=== PATIENT | male | born 2000 | race Two or more races ===

== ENCOUNTER 2018-09-17 09:03 | Emergency (ER) | payer OTHER ==
[2018-09-17 09:22] VITALS: BMI 28.2
[2018-09-17] MEDS ORDERED: ONDANSETRON 4 MG/2 ML VIAL IVPUSH ONE (09:23)
[2018-09-17] MEDS ORDERED: SODIUM CHLORIDE 1,000 ML IV STA (09:23)
[2018-09-17] MEDS ORDERED: ONDANSETRON 4 MG/2 ML VIAL ONE (09:31)
[2018-09-17 09:38] LABS: BASO % 0.3 % (0-2.0); EOS % 0.1 % (0-4.5); HEMATOCRIT 46.4 % (35.4-49); HEMOGLOBIN 15.4 GM/dL (11.7-16.9); LYMPH % 11.3 % (8-40); MCH 30.5 pg (25.7-33.7); MCHC 33.2 g/dl (32.0-35.9); MEAN CELL VOLUME 91.7 fl (80-96); MEAN PLT VOLUME 8.7 fl (7.5-11.1); MONO % 3.2 % (3.8-10.2); NEUT % 85.1 % (42.8-82.8); PLATELET COUNT 243 K/MM3 (134-434); RBC 5.06 M/mm3 (4.00-5.60); RDW 13.2 % (11.9-15.9); WHITE BLOOD COUNT 10.4 K/mm3 (4.0-10.0)
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
[2018-09-17 10:07] LABS: ALBUMIN 4.9 g/dl (3.4-5.0); BILIRUBIN,TOTAL 0.9 mg/dL (0.2-1); CALCIUM 10.2 mg/dL (8.5-10.1); CREATININE 1.2 mg/dL (0.55-1.3); POTASSIUM 4.1 mmol/L (3.5-5.1); TOT PROT 8.9 g/dl (6.4-8.2)
[2018-09-17] MEDS ORDERED: PHENTOLAMINE MESYLATE 5 MG/2 ML VIAL IVPUSH ONE (10:20)
[2018-09-17] MEDS ORDERED: SODIUM CHLORIDE 0.9% 500 ML INFUS.BAG IV ONE (10:21)
[2018-09-17] MEDS ORDERED: METOCLOPRAMIDE HCL INJECTION 10 MG/2 ML VIAL ONE (10:22)
[2018-09-17] MEDS ORDERED: METOCLOPRAMIDE HCL INJECTION 10 MG/2 ML VIAL IVPUSH ONE (10:35)
[2018-09-17 13:01] VITALS: BP 138/80; PULSE 98; TEMP 97.4
== END 2018-09-17 12:50 | disposition home or self-care (01) ==
LOC: JER 09:03
PROC: 3E033GC Introduction of Other Therapeutic Substance into Peripheral Vein, Percutaneous Approach (ICD-10-PCS; principal; 2018-09-17)
PROC: 3E033GC Introduction of Other Therapeutic Substance into Peripheral Vein, Percutaneous Approach (ICD-10-PCS; 2018-09-17)
DX: R11.10 Vomiting, unspecified (principal)
CPT/HCPCS: 36415; 80053; 83605; 83690; 85025; 96374; 96375; 99283-25; J7030

== ENCOUNTER 2022-05-03 19:43 | Emergency (ER) | payer OTHER ==
[2022-05-03 19:49] VITALS: BP 110/69; PULSE 74; RESP 18; TEMP 98.5; BMI 30.7
[2022-05-03] MEDS ORDERED: KETOROLAC TROMETHAMINE 30 MG/1 ML VIAL IVPUSH ONE (21:06)
[2022-05-03] MEDS ORDERED: SODIUM CHLORIDE 0.9% 500 ML INFUS.BAG IV ONE (21:06)
[2022-05-03] MEDS ORDERED: FAMOTIDINE 20 MG/50 ML IVPB 20 MG/50 ML MG IVPB ONE ×2 (21:06→21:12)
[2022-05-03] MEDS ORDERED: KETOROLAC TROMETHAMINE 30 MG/1 ML VIAL ONE (21:12)
[2022-05-03 21:38] LABS: BASO % 0.4 % (0-2.0); EOS % 0.6 % (0-4.5); HEMATOCRIT 47.2 % (35.4-49); HEMOGLOBIN 15.8 GM/dL (11.7-16.9); LYMPH % 29.7 % (8-40); MCH 30.9 pg (25.7-33.7); MCHC 33.4 g/dl (32.0-35.9); MEAN CELL VOLUME 92.5 fl (80-96); MEAN PLT VOLUME 7.8 fl (7.5-11.1); MONO % 9.1 % (3.8-10.2); NEUT % 60.2 % (42.8-82.8); PLATELET COUNT 245 10^3/uL (134-434); RBC 5.11 M/mm3 (4.00-5.60); RDW 12.8 % (11.9-15.9); WHITE BLOOD COUNT 8.2 K/mm3 (4.0-10.0)
[2022-05-03 21:40] LABS: PH,URINE 6.5 (5.0-8.0); URINE APPEARANCE CLEAR; URINE BILIRUBIN NEGATIVE (NEGATIVE); URINE COLOR YELLOW; URINE GLUCOSE (UA) NEGATIVE (NEGATIVE); URINE KETONE 3+ (NEGATIVE); URINE LEUK ESTERASE NEGATIVE (NEGATIVE); URINE NITRITE NEGATIVE (NEGATIVE); URINE PROTEIN NEGATIVE (NEGATIVE)
[2022-05-03 22:01] LABS: CALCIUM 9.6 mg/dL (8.5-10.1)
[2022-05-03 22:02] LABS: ALBUMIN 4.8 g/dl (3.4-5.0); BLOOD UREA NITROGEN 12.7 mg/dL (7-18)
[2022-05-03 22:05] LABS: CREATININE 1.2 mg/dL (0.55-1.3)
[2022-05-03 22:06] LABS: BILIRUBIN,TOTAL 1.2 mg/dL (0.2-1)
[2022-05-03] MEDS ORDERED: MAG HYDROX/AL HYDROX/SIMETH -MYLANTA- ORAL SUSPENSION PO ONE (22:41)
[2022-05-03] MEDS ORDERED: SUCRALFATE 1 GM/10 ML UNIT DOSE CUPS PO ONE (22:42)
[2022-05-03] MEDS ORDERED: MAG HYDROX/AL HYDROX/SIMETH 30 ML UNIT-DOSE CUP ONE (23:19)
[2022-05-03] MEDS ORDERED: SUCRALFATE 1 GM TABLET (FP) ONE (23:28)
== END 2022-05-04 00:39 | disposition home or self-care (01) ==
LOC: JERFT 19:43
PROC: 3E033GC Introduction of Other Therapeutic Substance into Peripheral Vein, Percutaneous Approach (ICD-10-PCS; principal; 2022-05-03)
DX: K29.70 Gastritis, unspecified, without bleeding (principal)
CPT/HCPCS: 0241U-QW; 36415; 76705-TC; 80053; 81003; 83690; 85025; 87491; 87591; 99284-25